=== PATIENT | female | born 1950 | race Caucasian/White ===

== ENCOUNTER 2018-02-11 09:14 | Outpatient (CLI) | payer MEDICARE | END 2018-02-11 09:15 | disposition home or self-care (01) | LOC: BICMAMMO 09:14 | PROVIDERS: ATTEND Family Medicine | DX: Z12.31 Encounter for screening mammogram for malignant neoplasm of breast (principal); Z80.3 Family history of malignant neoplasm of breast | CPT/HCPCS: 77063; 77067 ==

== ENCOUNTER 2018-11-12 15:52 | Inpatient (IN) | payer MEDICARE ==
[2018-11-12 20:26] VITALS: BMI 30.2
[2018-11-12] MEDS ORDERED: Acetaminophen 325 MG TAB PO PRN (22:53)
[2018-11-12] MEDS ORDERED: Benzonatate 100 MG CAP PO SCH (23:30)
[2018-11-13] MEDS ORDERED: Bisacodyl 5 MG TAB PO PRN (00:14)
[2018-11-13] MEDS ORDERED: Ondansetron PF 4 MG/2 ML Vial IVP PRN (00:14)
[2018-11-13] MEDS: cefTRIAXone\\ROCEPHIN 1 GM in Sodium Chloride 0.9% 100 ML IVPB SCH (01:08)
--- NOTE | 2018-11-13 01:21 | HP ---
PRIMARY CARE PROVIDER: Maribel Goldberg DO. CHIEF COMPLAINT: Shortness of breath. HISTORY OF PRESENT ILLNESS: Ms. Burns is a pleasant 68-year-old lady who was seen at [facility] on November 12, 2018, following transfer from [facility]. She reports that she was doing well until 5 days ago. She reports that one of her family members was treated with flu at that time. Over the last 5 days, she reports shortness of breath with exertion. She also reports cough that is productive of minimal amount of clear sputum. She reports wheezing. She reports chest congestion. She also reports chest pain with coughing, retrosternal, radiating to back, 8/10 at its worst, worse with coughing and improved when she is not coughing. As mentioned earlier, the cough is accompanied by minimal amount of sputum. She also reports that she had a temperature of 101.5 degrees Fahrenheit at [facility]. She was also hypoxic, with oxygen saturation of 89% on 2 L/minute of oxygen. She reports feeling slightly better after receiving antibiotics at [facility]. She denies any body aches, but reports generalized weakness. She has been drinking fluids, but not eating well. REVIEW OF SYSTEMS: All other systems reviewed and found to be negative. PAST MEDICAL HISTORY: Hypothyroidism, hypertension, and arrhythmia. SURGICAL HISTORY: Permanent pacemaker placement, hysterectomy, cholecystectomy. SOCIAL HISTORY: The patient lives alone. She denies any tobacco use, alcohol use, or recreational drug use. ALLERGIES: NO KNOWN DRUG ALLERGIES. CURRENT MEDICATIONS: 1. Albuterol inhaler as needed. 2. Tramadol as needed. 3. Amitriptyline 25 mg at bedtime. 4. Amlodipine 5 mg daily. 5. Aspirin 81 mg daily. 6. Calcium carbonate/vitamin D3 one tablet daily. 7. Vitamin D3 1000 units daily. 8. Gabapentin 200 mg at bedtime. 9. Synthroid 75 mcg daily. 10. Claritin 10 mg daily. 11. Protonix 40 mg daily. CODE STATUS: I discussed her code status. She is DNAR. FAMILY HISTORY: Her father from myocardial infarction. He also had cancer. PHYSICAL EXAMINATION: GENERAL: On examination, Ms. Burns is awake and alert, not in acute distress. VITAL SIGNS: Blood pressure is 127/62, pulse 79, respiratory rate 18, and oxygen saturation 97% on 2 L of oxygen. She is afebrile. EYES: No scleral icterus, no conjunctival pallor. ENT: Moist mucosal membranes. No oropharyngeal erythema or exudates. NECK: Supple, nontender, trachea is midline. RESPIRATORY: Accessory muscles of breathing are not active. Chest wall movements are symmetric bilaterally. She has diffuse expiratory wheeze. CARDIOVASCULAR: S1 and S2 are heard, regular. Peripheral pulses palpable. NEUROLOGIC: Cranial nerves 2 through 12 intact, deep tendon reflexes 2+. ABDOMEN: Soft, nontender, bowel sounds are heard. MUSCULOSKELETAL: Power is 5/5 in all four extremities. SKIN: No rashes or subcutaneous nodules. LYMPHATIC: No cervical lymphadenopathy. PSYCHIATRIC: Normal mood, normal affect, the patient is oriented to person, place, and time. LABORATORY DATA: Ms. Burns's labs and investigations were reviewed. I reviewed her chest x-ray, which does not show any pulmonary infiltrates. I also reviewed her electrocardiogram, which shows electronic ventricular paced rhythm. She has normal troponin I, normal white count, elevated hemoglobin of 16.2, normal platelet count, elevated D-dimer of 0.73, normal sodium, decreased potassium of 3.0, normal creatinine, elevated BNP of 113.8, normal total bilirubin, normal AST and normal ALT. Urinalysis is positive for protein. It is negative for nitrite and leukocyte esterase. ASSESSMENT AND PLAN: Ms. Burns is a pleasant 68-year-old lady who was seen at [facility] on November 12, 2018. Her problem list includes: 1. Sepsis: Ms. Burns is presenting with sepsis, most likely secondary to upper respiratory tract infection. She will be admitted to the hospital for further management. She has been started on ceftriaxone and azithromycin, which I will continue. She also had negative flu swab at an outpatient clinic yesterday morning. 2. Acute hypoxic respiratory failure: She was hypoxic in the emergency room at [facility]. We will continue her on oxygen at this facility and try to wean her off oxygen. 3. Upper respiratory tract infection: Continue ceftriaxone and azithromycin. 4. Hypertension: Resume home medications, monitor vital signs and titrate antihypertensives as needed. 5. Hypothyroidism: Continue Synthroid. Many thanks for allowing me to participate in your patient's care. Please feel free to contact me with any questions or concerns. LEVEL OF RISK: High. LEVEL OF COMPLEXITY: High. Job ID: [id number]
[2018-11-13] MEDS: Azithromycin 500 MG in Sodium Chloride 0.9% 250 ML 250 ML IVPB SCH (01:45)
--- NOTE | 2018-11-13 04:10 | PDOC.EVN ---
Event Note - Event Note Event Note: Discussed with pt again re: code status. Pt wishes to be full code and will discuss with her children before deciding. Code Status changed to Full Code on [employer].
[2018-11-13] MEDS: Levothyroxine Sodium 75 MCG TAB PO SCH (06:12)
[2018-11-13 07:01] LABS: #Eosinphils 0.1 thou/uL (0.0-0.7); #Monocytes 0.8 thou/uL (0.11-0.59); #Neutrophils 4.2 thou/uL (1.40-6.50); %Basophils 0.7 % (0.0-1.0); %Eosinophils 1.2 % (0.0-10.0); %Lymphocytes 27.7 % (21.0-51.0); %Monocytes 11.6 % (0.0-10.0); %Neutrophils 58.8 % (42.0-75.0); Hemoglobin 13.2 g/dL (12.0-16.0); Mean Corpuscular HGB CONC 33.3 g/dL (32.0-36.0); Mean Corpuscular Hemoglobin 30.7 pg (27.0-31.0); Mean Corpuscular Volume 92.1 fL (78.0-98.0); Mean Platelet Volume 7.1 fL (7.4-10.4); Platelet Count 179 thou/uL (130-400); RBC Distribution Width 12.7 % (11.5-14.5); Red Blood Cell (RBC) Count 4.31 mill/uL (4.20-5.40); White Blood Cell (WBC) Count 7.1 thou/uL (4.8-10.8)
[2018-11-13 07:19] LABS: Anion Gap 12 mmol/L (10-20); BUN (Urea Nitrogen) 7 mg/dL (9.8-20.1); Calc. Creatinine Clearance 107 mL/min (70-130); Calcium 8.5 mg/dL (7.8-10.44); Carbon Dioxide 25 mmol/L (23-31); Chloride 107 mmol/L (98-107); Estimated GFR-MDRD Greater than 90; Glucose 95 mg/dL (80-115); Potassium 3.5 mmol/L (3.5-5.1); Sodium 140 mmol/L (136-145)
[2018-11-13] MEDS: Loratadine 10 MG TAB PO SCH (09:59)
[2018-11-13] MEDS: Aspirin 81 mg Enteric Coated Tablet PO SCH (09:59)
[2018-11-13] MEDS: guaiFENesin ER 600 MG TAB PO SCH ×2 (09:59→20:08)
[2018-11-13] MEDS: Calcium Carbonate + Vit D 1 TAB PO SCH (09:59)
[2018-11-13] MEDS: Amlodipine 5 MG TAB PO SCH (09:59)
[2018-11-13] MEDS: Enoxaparin Sodium 40 MG/0.4 ML SYRINGE SC SCH (10:00)
[2018-11-13] MEDS: Benzonatate 100 MG CAP PO SCH ×3 (10:00→20:08)
--- NOTE | 2018-11-13 11:57 | PDOC.PN ---
- Subjective Encounter Start Date: 11/13/18 Encounter Start Time: 10:30 Subjective: sob is better this am -: no chest pain or palp - Objective Resuscitation Status - Order Detail: 11/13/18 04:08 Resuscitation Status Routine Resuscitation Status: FULL: Full Resuscitation Discussed with: jovani CHOPRA Reviewed: Yes Vital Signs & Weight: Vital Signs (12 hours) Temp Pulse Resp BP BP Pulse Ox 11/13/18 09:59 70 133/65 11/13/18 08:00 97.3 F L 70 18 133/65 18 L 11/13/18 07:15 94 L 11/13/18 07:14 64 16 94 L 11/13/18 03:40 98.7 F 76 22 H 128/68 95 11/13/18 01:53 75 20 11/12/18 23:56 98.8 F 79 18 127/62 97 Weight Weight 165 lb 6.4 oz Result Diagrams: 11/13/18 06:34 11/13/18 06:34 Phys Exam - Physical Examination HEENT: PERRLA, moist MMs Neck: no JVD, supple Respiratory: no wheezing, no rales rhonchi++ Cardiovascular: RRR, no significant murmur Gastrointestinal: soft, non-tender, positive bowel sounds Musculoskeletal: no edema, pulses present Neurological: non-focal, moves all 4 limbs Psychiatric: normal affect, A&O x 3 Dx/Plan (1) Acute respiratory failure with hypoxia Code(s): J96.01 - ACUTE RESPIRATORY FAILURE WITH HYPOXIA Status: Acute Comment: on 2 lts nc now (2) Acute viral syndrome Code(s): B34.9 - VIRAL INFECTION, UNSPECIFIED Status: Suspected (3) Sepsis Code(s): A41.9 - SEPSIS, UNSPECIFIED ORGANISM Status: Acute Qualifiers: Sepsis type: sepsis due to unspecified organism Qualified Code(s): A41.9 - Sepsis, unspecified organism (4) Bronchopneumonia Code(s): J18.0 - BRONCHOPNEUMONIA, UNSPECIFIED ORGANISM Status: Suspected (5) HTN (hypertension) Code(s): I10 - ESSENTIAL (PRIMARY) HYPERTENSION Status: Chronic Qualifiers: Hypertension type: essential hypertension Qualified Code(s): I10 - Essential (primary) hypertension (6) Hypothyroidism Code(s): E03.9 - HYPOTHYROIDISM, UNSPECIFIED Status: Chronic Qualifiers: Hypothyroidism type: unspecified Qualified Code(s): E03.9 - Hypothyroidism , unspecified (7) Dyslipidemia Code(s): E78.5 - HYPERLIPIDEMIA, UNSPECIFIED Status: Chronic (8) H/O cardiac pacemaker Code(s): Z95.0 - PRESENCE OF CARDIAC PACEMAKER Status: Chronic (9) H/O left bundle branch block Code(s): Z86.79 - PERSONAL HISTORY OF OTHER DISEASES OF THE CIRCULATORY SYSTEM Status: Chronic - Plan check viral pcr, echo, has cardiomegaly on cta -: last stress test was more than 5 yrs per patient, she has seen -: -before. If EF is reduced/gross wall motion abn will get stress test -: is on zithromax, ceftriaxone, nebs, aspirin, norvasc, elavil and synthroid -: to mobilize as tolerated, wean nasal oxygen for spo2 of 90% * . Review of Systems - Medications/Allergies Allergies/Adverse Reactions: Allergies Allergy/AdvReac Type Severity Reaction Status Date / Time codeine Allergy Emesis Verified 11/13/18 10:09 Medications: Current Medications Acetaminophen (Tylenol) 650 mg PO Q4H PRN PRN Reason: Headache/Fever/Mild Pain (1-3) Albuterol/Ipratropium (Duoneb) 3 ml NEB [id number] [facility] Last Admin: 11/13/18 07:14 Dose: 3 ml Albuterol/Ipratropium (Duoneb) 3 ml NEB [id number] PRN PRN Reason: SOB &/or Wheezing Amitriptyline HCl (Elavil) 25 mg PO HS [facility] Amlodipine Besylate (Norvasc) 5 mg PO DAILY [facility] Last Admin: 11/13/18 09:59 Dose: 5 mg Aspirin (Ecotrin) 81 mg PO DAILY [facility] Last Admin: 11/13/18 09:59 Dose: 81 mg Benzonatate (Tessalon) 100 mg PO TID [facility] Last Admin: 11/13/18 10:00 Dose: 100 mg Bisacodyl (Dulcolax) 10 mg PO DAILYPRN PRN PRN Reason: Constipation Calcium/Vitamin D (Caltrate 600 + Vit D) 1 tab PO DAILY [facility] Last Admin: 11/13/18 09:59 Dose: 1 tab Cholecalciferol (Vitamin D3) 1,000 units PO DAILY [facility] Last Admin: 11/13/18 09:59 Dose: 1,000 units Enoxaparin Sodium (Lovenox) 40 mg SC 0900 [facility] Last Admin: 11/13/18 10:00 Dose: 40 mg Gabapentin (Neurontin) 200 mg PO HS [facility] Guaifenesin (Mucinex) 600 mg PO Q12HR [facility] Last Admin: 11/13/18 09:59 Dose: 600 mg Azithromycin 500 mg/ Sodium (Chloride) 250 mls @ 250 mls/hr IVPB Q24HR [facility] Last Admin: 11/13/18 01:45 Dose: 250 mls Ceftriaxone Sodium 1 gm/ (Sodium Chloride) 100 mls @ 200 mls/hr IVPB Q24HR [facility] Last Admin: 11/13/18 01:08 Dose: 100 mls Levothyroxine Sodium (Synthroid) 75 mcg PO 0600 [facility] Last Admin: 11/13/18 06:12 Dose: 75 mcg Loratadine (Claritin) 10 mg PO DAILY [facility] Last Admin: 11/13/18 09:59 Dose: 10 mg Ondansetron HCl (Zofran) 4 mg IVP Q6H PRN PRN Reason: Nausea/Vomiting Pantoprazole Sodium (Protonix) 40 mg PO DAILY [facility] Last Admin: 11/13/18 09:59 Dose: 40 mg Sodium Chloride (Flush - Normal Saline) 10 ml IVF Q12HR [facility] Last Admin: 11/13/18 10:00 Dose: 10 ml Sodium Chloride (Flush - Normal Saline) 10 ml IVF PRN PRN PRN Reason: Saline Flush Last Admin: 11/13/18 01:12 Dose: 10 ml
[2018-11-13] MEDS ORDERED: Amitriptyline HCl 25 MG TAB PO SCH (21:00)
[2018-11-13] MEDS ORDERED: Gabapentin 100 MG CAP PO SCH (21:00)
[2018-11-14] MEDS: cefTRIAXone\\ROCEPHIN 1 GM in Sodium Chloride 0.9% 100 ML IVPB SCH (01:12)
[2018-11-14] MEDS: Azithromycin 500 MG in Sodium Chloride 0.9% 250 ML 250 ML IVPB SCH (01:12)
[2018-11-14] MEDS: Levothyroxine Sodium 75 MCG TAB PO SCH (06:10)
[2018-11-14] MEDS: Acetaminophen 325 MG TAB PO PRN ×2 (07:50→14:53)
[2018-11-14] MEDS: Amlodipine 5 MG TAB PO SCH (09:23)
[2018-11-14] MEDS: Aspirin 81 mg Enteric Coated Tablet PO SCH (09:23)
[2018-11-14] MEDS: Loratadine 10 MG TAB PO SCH (09:24)
[2018-11-14] MEDS: guaiFENesin ER 600 MG TAB PO SCH (09:24)
[2018-11-14] MEDS: Enoxaparin Sodium 40 MG/0.4 ML SYRINGE SC SCH (09:24)
[2018-11-14] MEDS: Calcium Carbonate + Vit D 1 TAB PO SCH (09:24)
[2018-11-14] MEDS: Benzonatate 100 MG CAP PO SCH ×2 (09:29→14:51)
[2018-11-14 11:13] VITALS: TEMP 98.6
--- NOTE | 2018-11-14 13:02 | DIS ---
DATE OF ADMISSION: 11/12/2018 DATE OF DISCHARGE: 11/14/2018 PRIMARY CARE PROVIDER: Dr. Maribel Goldberg. DISCHARGE DIAGNOSES: 1. Sepsis. 2. Acute hypoxic respiratory failure. 3. Upper respiratory tract infection with human metapneumovirus. DISCHARGE MEDICATIONS: In addition to her pre-admission home medications as dictated on my history and physical note dated November 13, 2018, she is being discharged on azithromycin 250 mg daily for 4 days and cefdinir 300 mg daily for 1 week. HOSPITAL COURSE: Ms. Burns is a pleasant 68-year-old lady, who was admitted to [facility] on November 12, 2018, for sepsis and acute hypoxic respiratory failure secondary to upper respiratory tract infection. She was started on antibiotics. She improved clinically. Hypoxia resolved. Respiratory virus panel by PCR detected human metapneumovirus. She is being discharged home in a stable condition. She is advised to follow up with her primary care provider in 3 to 5 days. Many thanks for allowing me to participate in your patient's care. Please feel free to contact me with any questions or concerns. DISCHARGE DESTINATION: Home. TOTAL AMOUNT OF TIME SPENT COORDINATING THIS DISCHARGE: 31 minutes. Job ID: [id number]
[2018-11-14 14:23] VITALS: BP 122/61
== END 2018-11-14 15:40 | disposition home or self-care (01) | DRG 871 ==
LOC: ERS 15:52 → 2NO 19:55
PROVIDERS: ADMIT Family Medicine; ATTEND Family Medicine
DX: A41.9 Sepsis, unspecified organism (principal); J96.01 Acute respiratory failure with hypoxia; J06.9 Acute upper respiratory infection, unspecified; Z66 Do not resuscitate; B97.81 Human metapneumovirus as the cause of diseases classified elsewhere; E03.9 Hypothyroidism, unspecified; I10 Essential (primary) hypertension; Z95.0 Presence of cardiac pacemaker; Z79.899 Other long term (current) drug therapy; Z79.82 Long term (current) use of aspirin; Z79.52 Long term (current) use of systemic steroids; Z82.49 Family history of ischemic heart disease and other diseases of the circulatory system
CPT/HCPCS: 36415; 80048; 80061; 85025; 87045; 87046; 87324; 87449; 87633; 87899; 93005; 93306; 94640; J0456; J0696; J1650; J7050; J7620

== ENCOUNTER 2019-03-13 09:26 | Outpatient (CLI) | payer MEDICARE | END 2019-03-13 09:27 | disposition home or self-care (01) | LOC: CTENTCT 09:26 | PROVIDERS: ATTEND Specialist | DX: J01.81 Other acute recurrent sinusitis (principal) | CPT/HCPCS: 70486 ==

== ENCOUNTER 2020-09-21 09:33 | Outpatient (CLI) | payer MEDICARE ==
--- NOTE | 2020-09-21 10:00 | MMO ---
Bilateral MAMMO Bilat Screen [facility]. CLINICAL HISTORY: Patient is 70 years old and is seen for screening. The patient has no family history of breast cancer. The patient has no personal history of cancer. The patient has a history of left Excisional Biopsy in 20+ years ago - benign. VIEWS: The views performed were: bilateral craniocaudal with tomosynthesis and bilateral mediolateral oblique with tomosynthesis. FILMS COMPARED: The present examination has been compared to prior imaging studies performed at [facility] on 08/13/2014, 11/14/2015, 10/29/2016 and 02/11/2018. This study has been interpreted with the assistance of computer-aided detection. MAMMOGRAM FINDINGS: There are scattered fibroglandular densities. There are no suspicious masses, suspicious calcifications, or new areas of architectural distortion. IMPRESSION: THERE IS NO MAMMOGRAPHIC EVIDENCE OF MALIGNANCY. A ROUTINE FOLLOW-UP MAMMOGRAM IN 1 YEAR IS RECOMMENDED. THE RESULTS OF THIS EXAM WERE SENT TO THE PATIENT. ACR BI-RADS Category 1 - Negative MAMMOGRAPHY NOTE: 1. A negative mammogram report should not delay a biopsy if a dominant of clinically suspicious mass is present. 2. Approximately 10% to 15% of breast cancers are not detected by mammography. 3. Adenosis and dense breasts may obscure an underlying neoplasm. Reported by: KAYLA PROCTOR MD Electonically Signed: [id number]
== END 2020-09-21 09:34 | disposition home or self-care (01) ==
LOC: BICMAMMO 09:33
PROVIDERS: ATTEND Family Medicine
DX: Z12.31 Encounter for screening mammogram for malignant neoplasm of breast (principal); Z91.89 Other specified personal risk factors, not elsewhere classified
CPT/HCPCS: 77063; 77067

== ENCOUNTER 2021-12-28 08:43 | Inpatient (IN) | payer MEDICARE ==
[2021-12-28 09:10] LABS: #Eosinphils 0.2 thou/uL (0.0-0.7); #Lymphocytes 1.1 thou/uL (1.20-3.40); #Neutrophils 7.4 thou/uL (1.40-6.50); %Basophils 0.1 % (0.0-1.0); %Lymphocytes 11.3 % (21.0-51.0); %Monocytes 9.8 % (0.0-10.0); %Neutrophils 76.7 % (42.0-75.0); Hemoglobin 14.7 g/dL (12.0-16.0); Mean Corpuscular HGB CONC 32.8 g/dL (32.0-36.0); Mean Corpuscular Hemoglobin 30.2 pg (27.0-31.0); Mean Corpuscular Volume 92.2 fL (78.0-98.0); Mean Platelet Volume 6.3 fL (7.4-10.4); Platelet Count 255 thou/uL (130-400); RBC Distribution Width 12.2 % (11.5-14.5); Red Blood Cell (RBC) Count 4.85 mill/uL (4.20-5.40); White Blood Cell (WBC) Count 9.7 thou/uL (4.8-10.8)
[2021-12-28 09:31] LABS: ALT (SGPT) 15 U/L (8-55); AST (SGOT) 20 U/L (5-34); Albumin 3.7 g/dL (3.4-4.8); Alkaline Phosphatase 106 U/L (40-110); Anion Gap 16 mmol/L (10-20); BUN (Urea Nitrogen) 9 mg/dL (9.8-20.1); Bilirubin, Total 0.9 mg/dL (0.2-1.2); Calc. Creatinine Clearance 0 mL/min (70-130); Calcium 9.1 mg/dL (7.8-10.44); Carbon Dioxide 23 mmol/L (23-31); Chloride 98 mmol/L (98-107); Globulin 3.5 g/dL (2.4-3.5); Glucose 92 mg/dL (83-110); Lipase 18 U/L (8-78); Potassium 3.7 mmol/L (3.5-5.1); Protein, Total 7.2 g/dL (5.8-8.1); Sodium 133 mmol/L (136-145)
[2021-12-28] MEDS ORDERED: Fentanyl 100 MCG/2 ML VIAL ONE (11:33)
[2021-12-28] MEDS ORDERED: metroNIDAZOLE 500 MG in Premix Bag 1 BAG IVPB SCH (12:00)
[2021-12-28] MEDS ORDERED: Morphine 2 MG/ML VIAL SLOW IVP PRN (13:20)
[2021-12-28] MEDS ORDERED: traMADol HCl 50 MG TAB PO PRN (13:20)
[2021-12-28] MEDS ORDERED: Calcium Carbonate 500 MG ChewTAB PO PRN (13:20)
[2021-12-28] MEDS ORDERED: Ondansetron PF 4 MG/2 ML Vial IVP PRN (13:20)
[2021-12-28] MEDS ORDERED: Ondansetron ODT 4 MG TAB PO PRN (13:20)
[2021-12-28] MEDS ORDERED: Senokot S 8.6-50 MG TAB PO PRN (13:20)
[2021-12-28 13:22] LABS: Bilirubin Negative (Negative); Blood, Urine Negative (Negative); Clarity Clear (Clear); Glucose, Urine (Dipstick) Normal (Negative); Ketone, Urine 10 mg/dL (Negative); Leukocyte Negative Leu/uL (Negative); Nitrite Negative (Negative); Protein, Urine (Dipstick) 10 mg/dL (Neg-Trace); Specific Gravity, Urine 1.017 (1.002-1.036); Urobilinogen Normal mg/dL (Less than 2); pH, Urine 5.5 (5.0-9.0)
[2021-12-28 13:26] VITALS: BMI 26.1
[2021-12-28] MEDS ORDERED: Iopamidol 370 76% 100 ML VIAL ONE (13:35)
[2021-12-28] MEDS: Acetaminophen 325 MG TAB PO PRN (13:45)
[2021-12-28] MEDS ORDERED: Piperacillin/Tazobactam 3.375 GM in Sodium Chloride 0.9% 100 ML IVPB SCH ×2 (15:15→18:00)
[2021-12-28] MEDS: Saccharomyces boulardii 250 MG CAP PO SCH ×2 (15:25→19:36)
[2021-12-28] MEDS ORDERED: Artificial Tear Sol 15 ML BOT EA EYE PRN (18:48)
[2021-12-28] MEDS: Piperacillin/Tazobactam 3.375 GM in Sodium Chloride 0.9% 100 ML IVPB SCH (19:35)
[2021-12-28] MEDS ORDERED: Gabapentin 300 MG CAP PO SCH (21:00)
[2021-12-29 00:46] LABS: SARS-CoV-2 PCR by NAA Not Detected (NotDetected)
[2021-12-29] MEDS: Piperacillin/Tazobactam 3.375 GM in Sodium Chloride 0.9% 100 ML IVPB SCH ×3 (04:12→20:03)
[2021-12-29] MEDS: Levothyroxine Sodium 75 MCG TAB PO SCH (04:13)
[2021-12-29] MEDS: Acetaminophen 325 MG TAB PO PRN (04:13)
[2021-12-29 06:38] LABS: #Eosinphils 0.3 thou/uL (0.0-0.7); #Lymphocytes 1.4 thou/uL (1.20-3.40); #Monocytes 1.1 thou/uL (0.11-0.59); #Neutrophils 5.3 thou/uL (1.40-6.50); %Basophils 0.1 % (0.0-1.0); %Eosinophils 3.4 % (0.0-10.0); %Lymphocytes 16.9 % (21.0-51.0); %Monocytes 13.9 % (0.0-10.0); %Neutrophils 65.6 % (42.0-75.0); Hemoglobin 13.2 g/dL (12.0-16.0); Mean Corpuscular HGB CONC 32.6 g/dL (32.0-36.0); Mean Corpuscular Volume 92.1 fL (78.0-98.0); Mean Platelet Volume 6.5 fL (7.4-10.4); Platelet Count 240 thou/uL (130-400); RBC Distribution Width 12.2 % (11.5-14.5); Red Blood Cell (RBC) Count 4.38 mill/uL (4.20-5.40)
[2021-12-29 06:45] LABS: Anion Gap 11 mmol/L (10-20); BUN (Urea Nitrogen) 8 mg/dL (9.8-20.1); Calc. Creatinine Clearance 70 mL/min (70-130); Calcium 8.8 mg/dL (7.8-10.44); Carbon Dioxide 25 mmol/L (23-31); Chloride 100 mmol/L (98-107); Glucose 95 mg/dL (83-110); Potassium 3.3 mmol/L (3.5-5.1); Sodium 133 mmol/L (136-145)
[2021-12-29] MEDS: Lisinopril 2.5 MG TAB PO SCH (08:53)
[2021-12-29] MEDS: Cholecalciferol 1,000 UNITS (25 MCG) TAB PO SCH (08:56)
[2021-12-29] MEDS: Aspirin 81 mg Enteric Coated Tablet PO SCH (08:56)
[2021-12-29] MEDS: Saccharomyces boulardii 250 MG CAP PO SCH ×3 (08:56→20:03)
[2021-12-29] MEDS: Multivitamin W/ Minerals 1 TAB PO SCH (08:56)
[2021-12-29] MEDS: Enoxaparin Sodium 40 MG/0.4 ML SYRINGE SC SCH (08:57)
[2021-12-29] MEDS ORDERED: Potassium Chloride 20 MEQ TAB PO SCH (13:45)
[2021-12-29] MEDS ORDERED: Gabapentin 400 MG CAP PO SCH (21:00)
[2021-12-29] MEDS ORDERED: Gabapentin 300 MG CAP PO SCH (21:00)
[2021-12-30] MEDS: Levothyroxine Sodium 75 MCG TAB PO SCH (04:38)
[2021-12-30] MEDS: Piperacillin/Tazobactam 3.375 GM in Sodium Chloride 0.9% 100 ML IVPB SCH ×2 (04:38→13:08)
[2021-12-30 06:36] LABS: #Eosinphils 0.4 thou/uL (0.0-0.7); #Lymphocytes 1.2 thou/uL (1.20-3.40); #Monocytes 0.8 thou/uL (0.11-0.59); #Neutrophils 3.2 thou/uL (1.40-6.50); %Basophils 0.4 % (0.0-1.0); %Eosinophils 7.3 % (0.0-10.0); %Monocytes 13.7 % (0.0-10.0); %Neutrophils 56.7 % (42.0-75.0); Hemoglobin 13.3 g/dL (12.0-16.0); Mean Corpuscular HGB CONC 32.3 g/dL (32.0-36.0); Mean Corpuscular Volume 92.8 fL (78.0-98.0); Mean Platelet Volume 6.4 fL (7.4-10.4); Platelet Count 260 thou/uL (130-400); RBC Distribution Width 12.1 % (11.5-14.5); Red Blood Cell (RBC) Count 4.42 mill/uL (4.20-5.40); White Blood Cell (WBC) Count 5.6 thou/uL (4.8-10.8)
[2021-12-30 06:55] LABS: Anion Gap 12 mmol/L (10-20); BUN (Urea Nitrogen) 7 mg/dL (9.8-20.1); Calc. Creatinine Clearance 78 mL/min (70-130); Calcium 8.9 mg/dL (7.8-10.44); Carbon Dioxide 25 mmol/L (23-31); Chloride 103 mmol/L (98-107); Glucose 93 mg/dL (83-110); Sodium 136 mmol/L (136-145)
[2021-12-30] MEDS: Multivitamin W/ Minerals 1 TAB PO SCH (08:48)
[2021-12-30] MEDS: Lisinopril 2.5 MG TAB PO SCH (08:48)
[2021-12-30] MEDS: Aspirin 81 mg Enteric Coated Tablet PO SCH (08:49)
[2021-12-30] MEDS: Enoxaparin Sodium 40 MG/0.4 ML SYRINGE SC SCH (08:49)
[2021-12-30] MEDS: Cholecalciferol 1,000 UNITS (25 MCG) TAB PO SCH (08:49)
[2021-12-30] MEDS: Saccharomyces boulardii 250 MG CAP PO SCH (08:49)
[2021-12-30 13:10] VITALS: BP 113/68; TEMP 97.3
== END 2021-12-30 12:54 | disposition home or self-care (01) | DRG 392 ==
LOC: ERS 08:43 → T4-B 12:05 → OBSVTOIN 13:20
PROVIDERS: ADMIT Internal Medicine; ATTEND Internal Medicine
DX: K57.20 Diverticulitis of large intestine with perforation and abscess without bleeding (principal); I50.22 Chronic systolic (congestive) heart failure; Z20.822 Contact with and (suspected) exposure to COVID-19; I11.0 Hypertensive heart disease with heart failure; E03.9 Hypothyroidism, unspecified; E87.6 Hypokalemia; K21.9 Gastro-esophageal reflux disease without esophagitis; G62.9 Polyneuropathy, unspecified; I44.7 Left bundle-branch block, unspecified; Z88.1 Allergy status to other antibiotic agents; Z88.5 Allergy status to narcotic agent; Z88.2 Allergy status to sulfonamides; Z95.810 Presence of automatic (implantable) cardiac defibrillator; Z90.49 Acquired absence of other specified parts of digestive tract; Z90.710 Acquired absence of both cervix and uterus; Z98.49 Cataract extraction status, unspecified eye; Z82.3 Family history of stroke; Z87.440 Personal history of urinary (tract) infections
CPT/HCPCS: 36415; 74177; 80048; 80053; 81003; 83690; 85025; 85652; 86140; 96374; 96375; J0744; J1650; J2270; J2405; J2543; J3010; J3490; U0003; U0005

== ENCOUNTER 2022-06-15 10:53 | Outpatient (CLI) | payer MEDICARE | END 2022-06-15 10:54 | disposition home or self-care (01) | LOC: BICMAMMO 10:53 | PROVIDERS: ATTEND Family Medicine | DX: Z12.31 Encounter for screening mammogram for malignant neoplasm of breast (principal); Z91.89 Other specified personal risk factors, not elsewhere classified | CPT/HCPCS: 77063; 77067 ==

== ENCOUNTER 2022-09-03 08:49 | Outpatient (CLI) | payer MEDICARE | END 2022-09-03 08:50 | disposition home or self-care (01) | LOC: BICMAMMO 08:49 | PROVIDERS: ATTEND Family Medicine | DX: Z13.820 Encounter for screening for osteoporosis (principal); M85.89 Other specified disorders of bone density and structure, multiple sites | CPT/HCPCS: 77080 ==

== ENCOUNTER 2023-08-09 08:51 | Outpatient (CLI) | payer MEDICARE | END 2023-08-09 08:52 | disposition home or self-care (01) | LOC: BICMAMMO 08:51 | PROVIDERS: ATTEND Family Medicine | DX: Z12.31 Encounter for screening mammogram for malignant neoplasm of breast (principal) | CPT/HCPCS: 77063; 77067 ==

== ENCOUNTER 2023-08-16 06:54 | Inpatient (IN) | payer MEDICARE ==
[2023-08-16 07:30] LABS: #Eosinphils 0.1 thou/uL (0.0-0.7); #Monocytes 1.2 thou/uL (0.11-0.59); %Basophils 0.4 % (0.0-1.0); %Eosinophils 0.6 % (0.0-10.0); %Lymphocytes 13.7 % (21.0-51.0); %Monocytes 10.7 % (0.0-10.0); %Neutrophils 74.1 % (42.0-75.0); Hematocrit 44.3 % (36.0-47.0); Hemoglobin 16.3 g/dL (12.0-16.0); Mean Corpuscular HGB CONC 36.8 g/dL (32.0-36.0); Mean Corpuscular Hemoglobin 30.5 pg (27.0-31.0); Mean Corpuscular Volume 82.8 fl (78.0-98.0); Mean Platelet Volume 8.8 fL (7.4-10.4); Platelet Count 274 10x3/uL (130-400); RBC Distribution Width 12.1 % (11.5-14.5); Red Blood Cell (RBC) Count 5.35 mill/uL (4.20-5.40); White Blood Cell (WBC) Count 10.8 10x3/uL (4.8-10.8)
[2023-08-16] MEDS ORDERED: Ondansetron PF 4 MG/2 ML Vial ONE (07:40)
[2023-08-16 07:53] LABS: ALT (SGPT) 14 U/L (8-55); AST (SGOT) 24 U/L (5-34); Albumin 4.2 g/dL (3.4-4.8); Alkaline Phosphatase 73 U/L (40-110); Anion Gap 14 mmol/L (10-20); BUN (Urea Nitrogen) 10 mg/dL (9.8-20.1); Bilirubin, Total 1.1 mg/dL (0.2-1.2); Calc. Creatinine Clearance 0 mL/min (70-130); Calcium 9.1 mg/dL (7.8-10.44); Carbon Dioxide 26 mmol/L (23-31); Chloride 80 mmol/L (98-107); Estimated GFR 76; Globulin 3.2 g/dL (2.4-3.5); Glucose 123 mg/dL (83-110); Protein, Total 7.4 g/dL (5.8-8.1)
[2023-08-16 07:56] LABS: Troponin I Less than 0.010 ng/mL (< 0.028)
[2023-08-16 08:06] LABS: Critical Call Chemistry ERS.DEC AT 0806; Sodium 117 mmol/L (136-145)
[2023-08-16] MEDS ORDERED: metroNIDAZOLE 500 MG (100 mL) BAG ONE (09:01)
[2023-08-16] MEDS ORDERED: LevoFLOXacin 750 mg/D5W 150 ml Premix Bag ONE (09:01)
[2023-08-16 09:09] LABS: Bilirubin Negative (Negative); Blood, Urine Negative (Negative); Glucose, Urine (Dipstick) Negative (Negative); Ketone, Urine 15 mg/dL (Negative); Leukocyte Negative (Negative); Nitrite Negative (Negative); Protein, Urine (Dipstick) Negative (Neg-Trace); Urobilinogen 0.2 mg/dL (Less than 2)
[2023-08-16 09:15] LABS: Clarity Clear (Clear)
[2023-08-16 09:16] LABS: Bacteria/HPF None Seen HPF (None Seen); CAUTI Indications for Culture Pelvic or flank pain; RBC/HPF 0-3 HPF (0-3); Squamous Epithelial 0-3 HPF (0-3); WBC/HPF 0-3 HPF (0-3)
[2023-08-16 09:21] LABS: Urine Culture Reflex No No
[2023-08-16] MEDS ORDERED: Iopamidol-370 76% 500 ML MDV (1 ML CHARGE) ONE (09:25)
[2023-08-16] MEDS ORDERED: Acetaminophen 325 MG TAB PO PRN (09:25)
[2023-08-16] MEDS ORDERED: traMADol HCl 50 MG TAB PO PRN (09:29)
[2023-08-16] MEDS ORDERED: Potassium Chloride 20 MEQ TAB PO SCH ×2 (09:30→21:00)
[2023-08-16] MEDS ORDERED: Enoxaparin 40 MG (0.4 mL) SYRINGE SC SCH (11:00)
[2023-08-16] MEDS ORDERED: Polyethylene Glycol 3350 17 GM Packet PO SCH (11:00)
[2023-08-16] MEDS ORDERED: Albuterol HFA (OR) 200 PUFF INH INH PRN (11:01)
[2023-08-16] MEDS ORDERED: Potassium Chloride 20 MEQ TAB ONE (11:32)
[2023-08-16] MEDS ORDERED: Polyethylene Glycol 3350 17 GM Packet ONE (11:32)
[2023-08-16] MEDS ORDERED: Enoxaparin 40 MG (0.4 mL) SYRINGE ONE (11:33)
[2023-08-16] MEDS: Potassium Chloride 20 MEQ TAB PO SCH ×2 (11:40→21:00)
[2023-08-16 13:19] LABS: Anion Gap 14 mmol/L (10-20); BUN (Urea Nitrogen) 8 mg/dL (9.8-20.1); Calc. Creatinine Clearance 68 mL/min (70-130); Calcium 8.3 mg/dL (7.8-10.44); Carbon Dioxide 24 mmol/L (23-31); Chloride 84 mmol/L (98-107); Estimated GFR 89; Glucose 97 mg/dL (83-110); Magnesium 1.8 mg/dL (1.6-2.6); Potassium 3.1 mmol/L (3.5-5.1)
[2023-08-16 13:28] LABS: Sodium 119 mmol/L (136-145)
[2023-08-16] MEDS ORDERED: Sodium Chloride 0.9% 1,000 ML IV SCH (13:45)
[2023-08-16] MEDS: metroNIDAZOLE 500 MG TAB PO SCH ×2 (14:02→21:00)
[2023-08-16] MEDS: Prochlorperazine Maleate 5 MG TAB PO PRN (14:02)
[2023-08-16 18:11] LABS: Anion Gap 16 mmol/L (10-20); BUN (Urea Nitrogen) 7 mg/dL (9.8-20.1); Calc. Creatinine Clearance 75 mL/min (70-130); Calcium 8.5 mg/dL (7.8-10.44); Carbon Dioxide 21 mmol/L (23-31); Chloride 86 mmol/L (98-107); Estimated GFR 93; Glucose 80 mg/dL (83-110); Potassium 3.1 mmol/L (3.5-5.1); Sodium 120 mmol/L (136-145)
[2023-08-16 18:12] LABS: Magnesium 1.8 mg/dL (1.6-2.6)
[2023-08-16] MEDS: Gabapentin 400 MG CAP PO SCH (20:59)
[2023-08-16] MEDS: Senokot S 8.6-50 MG TAB PO SCH (21:39)
[2023-08-17 00:52] LABS: Anion Gap 12 mmol/L (10-20); BUN (Urea Nitrogen) 6 mg/dL (9.8-20.1); Calc. Creatinine Clearance 32 mL/min (70-130); Calcium 8.1 mg/dL (7.8-10.44); Carbon Dioxide 23 mmol/L (23-31); Chloride 90 mmol/L (98-107); Estimated GFR 92; Glucose 96 mg/dL (83-110); Potassium 3.1 mmol/L (3.5-5.1); Sodium 122 mmol/L (136-145)
[2023-08-17] MEDS: Levothyroxine Sodium 75 MCG TAB PO SCH (05:59)
[2023-08-17] MEDS: LevoFLOXacin 750 MG TAB PO SCH (05:59)
[2023-08-17 06:33] LABS: #Eosinphils 0.1 thou/uL (0.0-0.7); #Monocytes 1.1 thou/uL (0.11-0.59); %Basophils 0.5 % (0.0-1.0); %Eosinophils 1.6 % (0.0-10.0); %Lymphocytes 16.5 % (21.0-51.0); %Monocytes 14.5 % (0.0-10.0); %Neutrophils 66.4 % (42.0-75.0); Hematocrit 38.5 % (36.0-47.0); Hemoglobin 13.8 g/dL (12.0-16.0); Mean Corpuscular HGB CONC 35.8 g/dL (32.0-36.0); Mean Corpuscular Hemoglobin 30.3 pg (27.0-31.0); Mean Corpuscular Volume 84.6 fl (78.0-98.0); Mean Platelet Volume 9.1 fL (7.4-10.4); Platelet Count 244 10x3/uL (130-400); RBC Distribution Width 12.4 % (11.5-14.5); Red Blood Cell (RBC) Count 4.55 mill/uL (4.20-5.40); White Blood Cell (WBC) Count 7.5 10x3/uL (4.8-10.8)
[2023-08-17 06:54] LABS: Anion Gap 11 mmol/L (10-20); BUN (Urea Nitrogen) 5 mg/dL (9.8-20.1); Calc. Creatinine Clearance 32 mL/min (70-130); Calcium 8.6 mg/dL (7.8-10.44); Carbon Dioxide 24 mmol/L (23-31); Chloride 95 mmol/L (98-107); Estimated GFR 92; Glucose 90 mg/dL (83-110); Potassium 3.8 mmol/L (3.5-5.1); Sodium 126 mmol/L (136-145)
[2023-08-17] MEDS: Aspirin 81 mg Enteric Coated Tablet PO SCH (08:52)
[2023-08-17] MEDS: Lisinopril 5 MG TAB PO SCH (08:52)
[2023-08-17] MEDS: metroNIDAZOLE 500 MG TAB PO SCH ×3 (08:55→21:34)
[2023-08-17] MEDS: Polyethylene Glycol 3350 17 GM Packet PO SCH (08:55)
[2023-08-17] MEDS: Senokot S 8.6-50 MG TAB PO SCH ×2 (08:55→21:50)
[2023-08-17] MEDS ORDERED: Lisinopril 2.5 MG TAB PO SCH (09:00)
[2023-08-17] MEDS ORDERED: Enoxaparin 40 MG (0.4 mL) SYRINGE SC SCH (09:00)
[2023-08-17] MEDS ORDERED: Magnesium 2 GM/50 ML(in water) 2 GM in Premix 1 BAG IVPB SCH (12:15)
[2023-08-17] MEDS ORDERED: Sodium Chloride 0.9% 1,000 ML IV SCH (12:15)
[2023-08-17] MEDS: Sodium Chloride 1 GM TAB PO SCH ×2 (14:19→21:50)
[2023-08-17 17:58] LABS: Magnesium 2.6 mg/dL (1.6-2.6)
[2023-08-17] MEDS: Gabapentin 400 MG CAP PO SCH (21:34)
[2023-08-18] MEDS: LevoFLOXacin 750 MG TAB PO SCH (06:39)
[2023-08-18] MEDS: Levothyroxine Sodium 75 MCG TAB PO SCH (06:39)
[2023-08-18 07:32] LABS: Anion Gap 12 mmol/L (10-20); BUN (Urea Nitrogen) 6 mg/dL (9.8-20.1); Calc. Creatinine Clearance 31 mL/min (70-130); Calcium 8.6 mg/dL (7.8-10.44); Carbon Dioxide 25 mmol/L (23-31); Chloride 97 mmol/L (98-107); Estimated GFR 91; Glucose 113 mg/dL (83-110); Potassium 3.2 mmol/L (3.5-5.1); Sodium 131 mmol/L (136-145)
[2023-08-18] MEDS: Lisinopril 5 MG TAB PO SCH (08:49)
[2023-08-18] MEDS: Senokot S 8.6-50 MG TAB PO SCH ×2 (08:49→20:00)
[2023-08-18] MEDS: metroNIDAZOLE 500 MG TAB PO SCH ×3 (08:49→20:00)
[2023-08-18] MEDS: Aspirin 81 mg Enteric Coated Tablet PO SCH (08:49)
[2023-08-18] MEDS: Enoxaparin 30 MG (0.3 mL) SYRINGE SC SCH (08:50)
[2023-08-18] MEDS: Sodium Chloride 1 GM TAB PO SCH (08:50)
[2023-08-18] MEDS: Polyethylene Glycol 3350 17 GM Packet PO SCH (08:50)
[2023-08-18] MEDS: Prochlorperazine Maleate 5 MG TAB PO PRN (10:31)
[2023-08-18] MEDS ORDERED: Potassium Chloride 20 MEQ TAB PO SCH ×2 (13:45→21:00)
[2023-08-18] MEDS ORDERED: Sodium Chloride 0.9% 1,000 ML IV SCH (14:00)
[2023-08-18] MEDS: Gabapentin 400 MG CAP PO SCH (19:59)
[2023-08-19] MEDS: Levothyroxine Sodium 75 MCG TAB PO SCH (05:37)
[2023-08-19] MEDS: LevoFLOXacin 750 MG TAB PO SCH (05:37)
[2023-08-19 08:09] VITALS: TEMP 98.1
[2023-08-19] MEDS: Lisinopril 5 MG TAB PO SCH (08:49)
[2023-08-19] MEDS: metroNIDAZOLE 500 MG TAB PO SCH (08:49)
[2023-08-19] MEDS: Senokot S 8.6-50 MG TAB PO SCH (08:49)
[2023-08-19] MEDS: Aspirin 81 mg Enteric Coated Tablet PO SCH (08:50)
[2023-08-19] MEDS: Enoxaparin 30 MG (0.3 mL) SYRINGE SC SCH (08:50)
[2023-08-19] MEDS ORDERED: Lisinopril 5 MG TAB PO SCH (09:00)
[2023-08-19 09:27] VITALS: BP 143/72
[2023-08-19] MEDS: Polyethylene Glycol 3350 17 GM Packet PO SCH (09:27)
[2023-08-19 10:28] LABS: Anion Gap 8 mmol/L (10-20); BUN (Urea Nitrogen) 6 mg/dL (9.8-20.1); Calc. Creatinine Clearance 31 mL/min (70-130); Calcium 8.8 mg/dL (7.8-10.44); Carbon Dioxide 25 mmol/L (23-31); Chloride 101 mmol/L (98-107); Estimated GFR 91; Glucose 88 mg/dL (83-110); Potassium 3.7 mmol/L (3.5-5.1); Sodium 130 mmol/L (136-145)
[2023-08-19 10:47] VITALS: BMI 27.7
[2023-08-19] MEDS ORDERED: Sodium Chloride 0.9% 500 ML IV SCH (12:15)
[2023-08-19] MEDS ORDERED: Potassium Chloride 20 MEQ TAB PO SCH (17:00)
[2023-08-20] MEDS ORDERED: Enoxaparin 40 MG (0.4 mL) SYRINGE SC SCH (09:00)
[2023-08-20] MEDS ORDERED: Lisinopril 10 MG TAB PO SCH (09:00)
== END 2023-08-19 13:37 | disposition home or self-care (01) | DRG 641 ==
LOC: SUATTDRO 06:54 → ERS 06:54 → ERHOLD 09:19 → MSONC 12:46
PROVIDERS: ADMIT Internal Medicine; ATTEND Internal Medicine
DX: E87.1 Hypo-osmolality and hyponatremia (principal); E46 Unspecified protein-calorie malnutrition; K57.32 Diverticulitis of large intestine without perforation or abscess without bleeding; E03.9 Hypothyroidism, unspecified; I10 Essential (primary) hypertension; E78.5 Hyperlipidemia, unspecified; K59.09 Other constipation; E87.6 Hypokalemia; K21.9 Gastro-esophageal reflux disease without esophagitis; G47.00 Insomnia, unspecified; E86.0 Dehydration; I95.9 Hypotension, unspecified; Z68.27 Body mass index [BMI] 27.0-27.9, adult; Z95.0 Presence of cardiac pacemaker; Z90.49 Acquired absence of other specified parts of digestive tract; Z98.890 Other specified postprocedural states; Z90.710 Acquired absence of both cervix and uterus; Z88.1 Allergy status to other antibiotic agents; Z88.5 Allergy status to narcotic agent; Z88.2 Allergy status to sulfonamides
CPT/HCPCS: 36415; 51701; 70450; 72170; 74177; 80048; 80053; 81001; 83735; 83930; 83935; 84300; 84484; 85025; 93005; 96365; 96375; J1650; J1956; J2405; J3475; J7030; J7050; Q0164; Q9967

== ENCOUNTER 2023-10-31 09:31 | Day surgery (SDC) | payer MEDICARE ==
[2023-10-30 12:00] VITALS: BMI 27.4
[2023-10-31] MEDS ORDERED: Lidocaine 2% PF 5 ML VIAL ONE (12:20)
[2023-10-31] MEDS ORDERED: PROPOFOL 20 ML ONE ×2 (12:54→13:13)
== END 2023-10-31 14:25 | disposition home or self-care (01) ==
LOC: SDC 09:31
PROVIDERS: ATTEND Internal Medicine Gastroenterology
PROC: 0DB38ZX Excision of Lower Esophagus, Via Natural or Artificial Opening Endoscopic, Diagnostic (ICD-10-PCS; principal; 2023-10-31)
PROC: 0DB68ZX Excision of Stomach, Via Natural or Artificial Opening Endoscopic, Diagnostic (ICD-10-PCS; 2023-10-31)
PROC: 0DJD8ZZ Inspection of Lower Intestinal Tract, Via Natural or Artificial Opening Endoscopic (ICD-10-PCS; 2023-10-31)
DX: K21.00 Gastro-esophageal reflux disease with esophagitis, without bleeding (principal); K44.9 Diaphragmatic hernia without obstruction or gangrene; K31.7 Polyp of stomach and duodenum; K64.8 Other hemorrhoids; K64.4 Residual hemorrhoidal skin tags; K63.89 Other specified diseases of intestine; K57.30 Diverticulosis of large intestine without perforation or abscess without bleeding; E07.9 Disorder of thyroid, unspecified; I11.0 Hypertensive heart disease with heart failure; I50.20 Unspecified systolic (congestive) heart failure; Z91.040 Latex allergy status; Z86.010 Personal history of colon polyps; Z90.710 Acquired absence of both cervix and uterus; Z95.810 Presence of automatic (implantable) cardiac defibrillator; Z88.5 Allergy status to narcotic agent; Z88.2 Allergy status to sulfonamides; Z88.1 Allergy status to other antibiotic agents
CPT/HCPCS: 88305; J2001; J2704